=== PATIENT | female | born 1960 | race African-American/Black ===

== ENCOUNTER 2025-09-11 06:28 | Day surgery (SDC) | payer OTHER ==
[~2025-09-11] VITALS: Ht 175.3 cm; Wt 74.4 kg
[~2025-09-11 06:28] MED LIST: ALBU108A5 IN; ASPI-543 PO; LOSA-533 PO; LOVA40TA72 PO; NITR0.4S29 SL; TIOT1AER IN
[2025-09-11] MEDS: IODIXANOL 320MG/ML 100ML BTL IV ONE ×2 (07:26→09:31)
--- NOTE | 2025-09-11 07:32 | ECG ---
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
[2025-09-11] MEDS: HEPARIN SODIUM (PORCINE) 5000 UNITS/ML 1ML VIAL ONE (08:38)
[2025-09-11] MEDS: VERAPAMIL 2.5MG/ML INJ 2ML VIAL IV ONE (08:38)
[2025-09-11] MEDS: fentaNYL CITRATE 100 MCG/2 ML VL ONE (08:38)
[2025-09-11] MEDS: MIDAZOLAM HCL 2MG/2ML 2ml VIAL (1mg/ml) ONE ×2 (08:39→09:31)
[2025-09-11] MEDS: ANGIOMAX 250 MG VIAL IV ONE (08:39)
[2025-09-11] MEDS: LIDOCAINE 2%HCL (LOCAL ANESTH.) INJ 20ML MDV ONE (08:39)
[2025-09-11] MEDS: SODIUM CHL 0.9% 0 ML ONE (08:39)
--- NOTE | 2025-09-11 09:25 | DVHOP2 ---
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 PREOPERATIVE DIAGNOSES: Abnormal stress test with CCS class 3 angina, POSTOP DIAGNOSIS: moderate cad DESCRIPTION OF PROCEDURE: The patient or appropriate family signed informed consent understanding the risks, benefits and alternatives of the procedure, t hey wished to proceed. The patient was brought to the cardiac analyst microbiology lab in n.p.o[place] state. The patient was prepped in a sterile fashion. Sedation was used per cardiac cath protocol. I administered 2 mL of 2% lidocaine to the right wrist. With an antegrade front wall puncture. I cannulated the right radial artery and placed a 6-[place] Glidesheath slender. Next, an intra-arterial spasmolytic was administered. Next, a - 5[place] catheter aand were used for coronary angiogram and LVEDP measurement and pressure pullback. At the completion of procedure, all guides and wires were removed, and there were no immediate complications. FINDINGS: RCA: large doiminant vessel off the right sinus of Valsalva, there is no severe flow limiting stenosis. 30% tandem mid vessel stenosis with diffuse mild plaque. LEFT MAIN: Moderate size left main, it bifurcates into LAD and circumflex. its very short almost dual ostium. CIRCUMFLEX: Moderate caliber vessel coming off the left main with no flow limiting stenosis. LAD: LAD is a moderate caliber vessel coming of the left main. prox LAD has 50% stenosis, distal LAD has 30% stenosis LVEDP of 4 mmhg CONCLUSIONS: 1. moderate non critical CAD 2. normal lvedp PLAN: Aggressive risk factor modification and medical management for the patient. ARNULFO ROTHMAN MD Sep 11, 2025 09:25
== END 2025-09-11 11:31 | disposition home or self-care (01) ==
LOC: CATH 06:28
PROVIDERS: ATTEND Internal Medicine
DX: R94.39 Abnormal result of other cardiovascular function study (principal); I25.119 Atherosclerotic heart disease of native coronary artery with unspecified angina pectoris; Z88.1 Allergy status to other antibiotic agents; Z88.0 Allergy status to penicillin; Z88.2 Allergy status to sulfonamides
CPT/HCPCS: 93005; 93458; C1894; J1644; J2250; J3010; J7030; Q9967; 99152